=== PATIENT | male | born 1965 | race Caucasian/White ===

== ENCOUNTER 2017-06-14 15:10 | Emergency (ER) | payer OTHER ==
[~2017-06-14] VITALS: Ht 180.3 cm; Wt 88.5 kg
--- NOTE | 2017-06-14 15:29 | NUR ---
PT LEFT BEFORE SEEN BY
== END 2017-06-14 15:30 | disposition left against medical advice (07) ==
LOC: ER 15:10
DX: Z53.21 Procedure and treatment not carried out due to patient leaving prior to being seen by health care provider (principal)
CPT/HCPCS: A4663

== ENCOUNTER 2023-09-27 17:35 | Emergency (ER) | payer BC, OTHER ==
[~2023-09-27] VITALS: Ht 180.3 cm; Wt 93.0 kg
[2023-09-27] MEDS ORDERED: PANT20TA17 PO (18:31)
[2023-09-27] MEDS ORDERED: ASPI81TA31 PO (18:31)
[2023-09-27] MEDS ORDERED: DUPI200S SQ (18:31)
[2023-09-27] MEDS ORDERED: TADA5TAB13 PO (18:31)
[2023-09-27] MEDS ORDERED: HYDR12.55 PO (18:31)
[2023-09-27] MEDS ORDERED: TEST100A SUBCUT (18:31)
[2023-09-27] MEDS ORDERED: ANAS1TAB50 PO (18:31)
[2023-09-27] MEDS ORDERED: ACYC400T19 PO (18:31)
[2023-09-27] MEDS ORDERED: LOSA100T31 PO (18:31)
[2023-09-27] MEDS ORDERED: ALBU0.63 NEB (18:31)
[2023-09-27] MEDS ORDERED: BENZONATATE 100 MG CAPSULE PO ONE (19:30)
[2023-09-27] MEDS ORDERED: predniSONE 20 MG TABLET PO ONE (19:30)
[2023-09-27] MEDS ORDERED: predniSONE 20 MG TABLET ONE (19:47)
[2023-09-27] MEDS ORDERED: BENZ-13 PO (20:18)
[2023-09-27] MEDS ORDERED: METH4TAB3 PO (20:18)
[2023-09-27 20:28] VITALS: BP 120/74; TEMP 98.4; O2SAT 99
== END 2023-09-27 20:29 | disposition home or self-care (01) ==
LOC: ER 17:41
DX: S83.095A Other dislocation of left patella, initial encounter (principal); S83.412A Sprain of medial collateral ligament of left knee, initial encounter; J20.9 Acute bronchitis, unspecified; Z79.82 Long term (current) use of aspirin; Z79.899 Other long term (current) drug therapy; X50.1XXA Overexertion from prolonged static or awkward postures, initial encounter; Y93.89 Activity, other specified; Y92.89 Other specified places as the place of occurrence of the external cause; Y99.8 Other external cause status
CPT/HCPCS: 71045; A4606; A4663; J7512